=== PATIENT | female | born 1980 | race Caucasian/White ===

== ENCOUNTER 2017-12-20 16:43 | Emergency (ER) | payer SELFPAY ==
[~2017-12-20] VITALS: Wt 52.2 kg
[2017-12-20 16:45] VITALS: BP 129/100
[2017-12-20] MEDS ORDERED: CEPHALEXIN500 M1 PO (18:33)
== END 2017-12-20 18:59 | disposition home or self-care (01) ==
LOC: ED 16:43
DX: S51.812A Laceration without foreign body of left forearm, initial encounter (principal); Z23 Encounter for immunization; W20.8XXA Other cause of strike by thrown, projected or falling object, initial encounter; Y93.89 Activity, other specified; Y92.099 Unspecified place in other non-institutional residence as the place of occurrence of the external cause; Y99.9 Unspecified external cause status

== ENCOUNTER 2019-01-28 10:11 | Inpatient (IN) | payer OTHER ==
[~2019-01-28] VITALS: Ht 167.6 cm; Wt 53.1 kg
[~2019-01-28 10:11] MED LIST: CEPHALEXIN500 M1 PO
[2019-01-28 10:15] VITALS: BP 164/105
[2019-01-28 10:56] LABS: BASO % 0.3 % (0.0-1.0); EOS % 0.4 % (1.0-4.0); HEMOGLOBIN 11.5 g/dl (12.0-16.0); LYMPH # 0.9 10*3/uL (1.3-4.4); LYMPH % 10.9 % (27.0-41.0); MEAN CORPUSCULAR HGB 25.8 pg (27.0-31.0); MEAN CORPUSCULAR HGB CONC 31.1 g/dl (33.0-37.0); MEAN PLATELET VOLUME 9.1 fl (9.6-12.3); MONO # 1.3 10*3/uL (0.1-1.0); NEUT # 5.6 10*3/uL (2.3-7.9); NEUT % 70.8 % (47.0-73.0); PLATELET COUNT AUTOMATED 203 10*3/uL (130-400); RED BLOOD COUNT 4.46 10*6/uL (4.10-5.10); RED CELL DISTRI WIDTH 18.4 % (0-14.5); WHITE BLOOD COUNT 7.9 10*3/uL (4.8-10.8)
[2019-01-28 10:58] LABS: BILIRUBIN NEGATIVE (NEGATIVE); BLOOD 3+ (NEGATIVE); CLARITY CLOUDY (CLEAR); GLUCOSE NEGATIVE (NEGATIVE); KETONE TRACE (NEGATIVE); LEUKO ESTERASE 2+ (NEGATIVE); NITRITE POSITIVE (NEGATIVE)
[2019-01-28 10:59] LABS: COLOR RED (YELLOW)
[2019-01-28 11:11] LABS: ALBUMIN 2.4 gm/dl (3.1-4.5); ALKALINE PHOSPHATASE 70 U/L (45-117); BUN 18 mg/dl (7-24); CHLORIDE 107 mmol/L (98-107); CREATININE 0.84 mg/dL (0.55-1.02); LIPASE 68 U/L (73-393); POTASSIUM 3.8 mmol/L (3.5-5.1); SGOT/AST 15 IU/L (3-35); SGPT/ALT 12 U/L (12-78); SODIUM 138 mmol/L (136-145); TOTAL PROTEIN 6.8 gm/dL (6.4-8.2)
[2019-01-28 11:12] LABS: BACTERIA 4+; RBC TNTC rbc/hpf (0-2); WBC TNTC wbc/hpf (0-5)
[2019-01-28 11:16] LABS: BETA-HCG, QUANT < 1.0 mIU/mL (1-3)
[2019-01-28 13:50] VITALS: BP 144/95
[2019-01-28 14:00] VITALS: BP 150/96
--- NOTE | 2019-01-28 14:45 | NUR ---
Time: 1444 A 38 year old FEMALE admitted to 5E under services of HERMANN FORDE DO, Pt. arrived via stretcher from ER. Chief complaint: FLANK PAIN . OTTO ESTRADA
[2019-01-28] MEDS ORDERED: HYDR25T PO (14:56)
--- NOTE | 2019-01-28 15:26 | NUR ---
CONSULT INFO CALLED TO INFECTIOUS DISEASE OFFICE
--- NOTE | 2019-01-28 15:49 | NUR ---
CONSULT INFO CALLED TO DR FUNEZ OFFICE
[2019-01-28 16:00] VITALS: BP 148/90
--- NOTE | 2019-01-28 16:01 | NUR ---
SPKE WITH DR FUNEZ REGARDING CONSULT
--- NOTE | 2019-01-28 18:52 | NUR ---
PT MEDICATED WITH MORPHINE FOR C/O BACK PAIN. PT RATES PAIN 8/10 WILL MONITOR
[2019-01-28 20:00] VITALS: BP 139/85
--- NOTE | 2019-01-28 23:00 | NUR ---
MORPHINE GIVEN PER PATIENT REQUEST FOR BACK PAIN RATED 10/10. WILL ASSESS EFFECTIVENESS.
--- NOTE | 2019-01-28 23:15 | NUR ---
24 HOUR CHART CHECK COMPLETE.
[2019-01-29] VITALS: BP 150/91
--- NOTE | 2019-01-29 | NUR ---
MORPHINE EFFECTIVE PER PATIENT. CALL LIGHT WITHIN REACH.
--- NOTE | 2019-01-29 03:47 | NUR ---
PRN MORPHINE ADMINISTERED PRESCRIBED FOR PT C/O 10 FLANK PAIN. WILL CONTINUE TO MONITOR AND REASSESS. STATES "THE MORPHINE TAKES THE EDGE OFF BUT DOESN'T TAKE AWAY THE PAIN COMPLETELY".
--- NOTE | 2019-01-29 05:00 | NUR ---
PT STATES KP MORPHINE REDUCED HER PAIN TO A 6/10 ON THE PAIN SCALE. WILL CONTINUE TO MONITOR.
[2019-01-29 06:10] LABS: HEMATOCRIT 32.5 % (37.0-47.0); HEMOGLOBIN 10.4 g/dl (12.0-16.0); MEAN CELL VOLUME 80.6 fl (81.0-99.0); MEAN CORPUSCULAR HGB 25.8 pg (27.0-31.0); MEAN PLATELET VOLUME 9.7 fl (9.6-12.3); PLATELET COUNT AUTOMATED 204 10*3/uL (130-400); RED BLOOD COUNT 4.03 10*6/uL (4.10-5.10); RED CELL DISTRI WIDTH 18.3 % (0-14.5); WHITE BLOOD COUNT 9.4 10*3/uL (4.8-10.8)
[2019-01-29 06:36] LABS: ALBUMIN 2.1 gm/dl (3.1-4.5); BUN 12 mg/dl (7-24); CHLORIDE 105 mmol/L (98-107); CHOLESTEROL 87 mg/dL (<200); POTASSIUM 3.7 mmol/L (3.5-5.1); SGOT/AST 12 IU/L (3-35); SGPT/ALT 11 U/L (12-78); SODIUM 135 mmol/L (136-145); TOTAL PROTEIN 5.9 gm/dL (6.4-8.2); TRIGLYCERIDES 85 mg/dl (<150); VLDL CHOLESTEROL 17 mg/dL (6-40)
[2019-01-29 06:43] LABS: ALKALINE PHOSPHATASE 63 U/L (45-117); FREE T4 1.07 ng/dl (0.76-1.46); HDL CHOLESTEROL 17 mg/dl (40-60); LDL CHOLESTEROL 53 mg/dL (9-159)
[2019-01-29 07:22] LABS: BASOPHILS 1 % (0-1); PLATELET SUFFICIENCY NORMAL (NORMAL); TOTAL CELLS COUNTED 100 #CELLS
--- NOTE | 2019-01-29 07:37 | NUR ---
PT RESTING IN BED. NO DISTRESS NOTED. SEE SHIFT ASSESSMENT. WILL MONITOR
[2019-01-29 08:00] VITALS: BP 153/84
--- NOTE | 2019-01-29 08:53 | NUR ---
PT REQUESTED AND GIVEN MORPHINE FOR C/O BACK PAIN. PT RATES PAIN 8/10 WILL MONITOR
[2019-01-29 08:54] LABS: VITAMIN D, 25-HYDROXY 17.1 ng/mL (30-100)
--- NOTE | 2019-01-29 10:30 | NUR ---
morphine helped will monitor
[2019-01-29 12:00] VITALS: BP 151/94
--- NOTE | 2019-01-29 14:55 | NUR ---
NORCO GIVEN PER PT REQUEST FOR BACK PAIN RATED 7/10. PATIENT DESCRIBED PAIN A CONSTANT ACHE. WILL CONTINUE TO MONITOR AND REASSESS.
[2019-01-29 16:00] VITALS: BP 145/93
--- NOTE | 2019-01-29 16:02 | NUR ---
spoke with dr atkinson regarding pt bp no new orders recieved
--- NOTE | 2019-01-29 16:25 | NUR ---
pt requested and given morphine for c/o back pain. pt rates pain 5/10 will monitor
[2019-01-29 20:00] VITALS: BP 150/93
--- NOTE | 2019-01-29 20:15 | NUR ---
MORPHINE ADMINISTERED FOR 8/10 FLANK PAIN. PT DENIES DYSURIA. WILL CONTINUE TO MONITOR AND REASSESS. NO OTHER COMPLAINTS AT THIS TIME.
--- NOTE | 2019-01-29 20:16 | NUR ---
NURSING BONDERIZER OPERATOR AWARE OF BED AVAILABILITY AT [facility] FOR PT TRANSFER.
--- NOTE | 2019-01-29 20:20 | NUR ---
SPOKE WITH DR HARE REGARDING NEED FOR D/C ORDERS FOR PTS TRANSFER TO [facility].
[2019-01-29] MEDS ORDERED: ZOSYN 3.373.375 GM/5 IV ×2 (20:21→20:22)
--- NOTE | 2019-01-29 20:51 | NUR ---
PRN NORCO ADMINISTERED FOR BREAKTHROUGH PAIN RATED A 7/10. PT STATES THE MORPHINE WAS EFFECTIVE FOR A SHORT TIME. WILL CONTINUE TO MONITOR.
--- NOTE | 2019-01-29 21:02 | NUR ---
TRANSFER PAPER WORK COMPLETED BY PT. UNDERSTANDS REASON FOR TRANSFER.
--- NOTE | 2019-01-29 21:17 | NUR ---
Discharge instructions reviewed with patient. Patient receptive and verbalizes understanding. Pt aware of reasons for transfer to [facility]. Written instructions given to patient. Belongings sheet signed, all personal items with pt in bag. DAQUAN JAMES
--- NOTE | 2019-01-29 21:25 | NUR ---
TELEPHONE NURSE TO NURSE REPORT GIVEN TO SHAWNEE RAO AT [facility].
--- NOTE | 2019-01-29 21:41 | NUR ---
PT ASLEEP AT THIS TIME. RESPIRATIONS ERND. NO SIGNS OF DISCOMFORT OR DISTRESS.
--- NOTE | 2019-01-29 22:25 | NUR ---
PT OFF FLOOR VIA [facility]. BELONGINGS WITH PT. RECEIVING NURSE NOTIFED OF PTS DEPARTURE PER REQUEST.
== END 2019-01-29 22:28 | disposition short-term general hospital (02) | DRG 463 ==
LOC: ED 10:11 → EDHOLD 13:45 → 5E 13:45
PROVIDERS: Emergency Medicine; Registered Nurse; ADMIT Internal Medicine
DX: N10 Acute pyelonephritis (principal); E43 Unspecified severe protein-calorie malnutrition; I10 Essential (primary) hypertension; B19.20 Unspecified viral hepatitis C without hepatic coma; N15.1 Renal and perinephric abscess; B96.89 Other specified bacterial agents as the cause of diseases classified elsewhere; R80.9 Proteinuria, unspecified; Z87.891 Personal history of nicotine dependence; Z87.440 Personal history of urinary (tract) infections; Z79.899 Other long term (current) drug therapy; Z71.6 Tobacco abuse counseling; Z68.1 Body mass index [BMI] 19.9 or less, adult

== ENCOUNTER 2019-12-22 10:11 | Emergency (ER) | payer SELFPAY ==
[~2019-12-22] VITALS: Wt 49.9 kg
[~2019-12-22 10:11] MED LIST changes: +HYDR25T PO; +ZOSYN 3.373.375 GM/5 IV
[2019-12-22 10:15] VITALS: BP 150/90
[2019-12-22] MEDS ORDERED: IBU800 MG PO (10:38)
[2019-12-22] MEDS ORDERED: CLEOCIN HCL150 MG PO (10:38)
== END 2019-12-22 11:14 | disposition home or self-care (01) ==
LOC: ED 10:11
DX: K04.7 Periapical abscess without sinus (principal); K08.89 Other specified disorders of teeth and supporting structures; I10 Essential (primary) hypertension; Z79.899 Other long term (current) drug therapy

== ENCOUNTER 2020-12-11 10:23 | Emergency (ER) | payer OTHER ==
[~2020-12-11 10:23] MED LIST changes: +CLEOCIN HCL150 MG PO; +IBU800 MG PO
[2020-12-11 10:28] VITALS: BP 170/100
[2020-12-11 11:00] LABS: ALBUMIN 3.1 gm/dl (3.1-4.5); ALKALINE PHOSPHATASE 87 U/L (45-117); BUN 14 mg/dl (7-24); CHLORIDE 103 mmol/L (98-107); CREATININE 0.94 mg/dL (0.55-1.02); POTASSIUM 3.1 mmol/L (3.5-5.1); SGOT/AST 38 IU/L (3-35); SGPT/ALT 30 U/L (12-78); SODIUM 136 mmol/L (136-145)
== END 2020-12-11 11:46 | disposition left against medical advice (07) ==
LOC: ED 10:23
PROVIDERS: Student in an Organized Health Care Education/Training Program
DX: F11.23 Opioid dependence with withdrawal (principal); R25.1 Tremor, unspecified; R11.2 Nausea with vomiting, unspecified; F17.200 Nicotine dependence, unspecified, uncomplicated; Z79.2 Long term (current) use of antibiotics; Z79.899 Other long term (current) drug therapy; Z53.29 Procedure and treatment not carried out because of patient's decision for other reasons

== ENCOUNTER 2021-04-06 05:26 | Emergency (ER) | payer OTHER ==
[2021-04-06 07:09] VITALS: BP 136/91
== END 2021-04-06 09:21 | disposition left against medical advice (07) ==
LOC: ED 05:26
DX: M54.50 Low back pain, unspecified (principal); Z53.21 Procedure and treatment not carried out due to patient leaving prior to being seen by health care provider

== ENCOUNTER 2022-03-25 14:24 | Emergency (ER) | payer OTHER ==
[~2022-03-25] VITALS: Ht 167.6 cm; Wt 54.4 kg
[2022-03-25 14:46] VITALS: BP 169/95
[2022-03-25] MEDS ORDERED: AMOXICILLIN500 M2 PO (14:55)
== END 2022-03-25 14:58 | disposition home or self-care (01) ==
LOC: ED 14:24
DX: K02.9 Dental caries, unspecified (principal); Z98.890 Other specified postprocedural states; Z87.891 Personal history of nicotine dependence

== ENCOUNTER 2022-04-18 13:11 | Emergency (ER) | payer OTHER ==
[~2022-04-18] VITALS: Wt 54.4 kg
[~2022-04-18 13:11] MED LIST changes: +AMOXICILLIN500 M2 PO
[2022-04-18 13:16] VITALS: BP 166/90
== END 2022-04-18 13:52 | disposition left against medical advice (07) ==
LOC: ED 13:11
DX: Z53.21 Procedure and treatment not carried out due to patient leaving prior to being seen by health care provider (principal)

== ENCOUNTER → 2022-10-23 | Outpatient (CLI) | payer OTHER | END | disposition home or self-care (01) | LOC: RAD 12:57 | PROVIDERS: ATTEND Nurse Practitioner Family | DX: M25.561 Pain in right knee (principal) ==

== ENCOUNTER → 2023-05-07 | Outpatient (CLI) | payer OTHER | END | disposition home or self-care (01) | LOC: US 14:30 | PROVIDERS: ATTEND Nurse Practitioner Family | DX: I10 Essential (primary) hypertension (principal); R60.0 Localized edema ==

== ENCOUNTER 2023-11-27 13:09 | Emergency (ER) | payer OTHER ==
[~2023-11-27] VITALS: Ht 167.6 cm; Wt 59.0 kg
[2023-11-27 13:14] VITALS: BP 154/91
[2023-11-27] MEDS ORDERED: LOSARTAN-HCTZ1 EAC1 PO (13:21)
[2023-11-27] MEDS ORDERED: BUPRENORPHINE-1 EAC2 SL (13:22)
[2023-11-27 14:24] LABS: BASO # 0.1 10*3/uL (0.0-0.1); BASO % 1.1 % (0.0-1.0); EOS % 0.7 % (1.0-4.0); HEMATOCRIT 39.4 % (37.0-47.0); LYMPH # 1.1 10*3/uL (1.3-4.4); LYMPH % 18.9 % (27.0-41.0); MEAN CELL VOLUME 84.2 fl (81.0-99.0); MEAN CORPUSCULAR HGB 26.1 pg (27.0-31.0); MEAN PLATELET VOLUME 9.1 fl (9.6-12.3); MONO # 0.6 10*3/uL (0.1-1.0); MONO % 10.1 % (3.0-9.0); NEUT # 3.9 10*3/uL (2.3-7.9); PLATELET COUNT AUTOMATED 226 10*3/uL (130-400); RED BLOOD COUNT 4.68 10*6/uL (4.10-5.10); WHITE BLOOD COUNT 5.7 10*3/uL (4.8-10.8)
[2023-11-27 14:37] LABS: ACT PARTIAL THROMBO TIME 26.8 SECONDS (20.0-32.1)
[2023-11-27 14:44] LABS: BUN 9 mg/dl (9-23); CHLORIDE 102 mmol/L (98-107); POTASSIUM 3.2 mmol/L (3.4-5.1)
[2023-11-27] MEDS ORDERED: POTASSIUM CHLORIDE 20 MEQ TAB PO ONE (15:10)
[2023-11-27 15:25] LABS: BILIRUBIN Negative (Negative); BLOOD Trace-Intact (Negative); CLARITY Clear (Clear); COLOR Yellow (Yellow); GLUCOSE Negative (Negative); KETONE Trace (Negative); LEUKO ESTERASE Negative (Negative); NITRITE Negative (Negative); PH 6.5 (4.5-8.0)
[2023-11-27 15:33] LABS: URINE AMPHETAMINES Negative (1000ng/ml); URINE BARBITURATES Negative (200ng/ml); URINE BENZODIAZEPINES Negative (200ng/ml); URINE CANNABINOIDS (THC) Negative (50ng/ml); URINE COCAINE Positive (300ng/ml); URINE METHADONE Negative (300ng/ml); URINE OPIATES Negative (300ng/ml); URINE PHENCYCLIDINE Negative (25ng/ml)
[2023-11-27 15:38] LABS: BACTERIA 1+
[2023-11-27] MEDS ORDERED: GOOD NEIGHBOR M25 M1 PO (15:50)
== END 2023-11-27 16:03 | disposition home or self-care (01) ==
LOC: ED 13:09
PROVIDERS: Nurse Practitioner
DX: R07.89 Other chest pain (principal); R42 Dizziness and giddiness; R07.81 Pleurodynia; M25.521 Pain in right elbow; I10 Essential (primary) hypertension; H53.8 Other visual disturbances; D64.9 Anemia, unspecified; F11.10 Opioid abuse, uncomplicated; F14.10 Cocaine abuse, uncomplicated; F17.290 Nicotine dependence, other tobacco product, uncomplicated; Z98.890 Other specified postprocedural states; Z79.899 Other long term (current) drug therapy

== ENCOUNTER 2024-02-05 11:27 | Emergency (ER) | payer OTHER ==
[~2024-02-05] VITALS: Ht 167.6 cm; Wt 62.6 kg
[~2024-02-05 11:27] MED LIST changes: +BUPRENORPHINE-1 EAC2 SL; +GOOD NEIGHBOR M25 M1 PO; +LOSARTAN-HCTZ1 EAC1 PO
[2024-02-05 11:46] VITALS: BP 171/111
[2024-02-05 12:06] LABS: BASO # 0.1 10*3/uL (0.0-0.1); BASO % 1.1 % (0.0-1.0); EOS # 0.1 10*3/uL (0.0-0.4); EOS % 2.3 % (1.0-4.0); HEMATOCRIT 38.2 % (37.0-47.0); MEAN CELL VOLUME 82.9 fl (81.0-99.0); MEAN CORPUSCULAR HGB 25.4 pg (27.0-31.0); MEAN CORPUSCULAR HGB CONC 30.6 g/dl (33.0-37.0); MONO # 0.8 10*3/uL (0.1-1.0); MONO % 15.9 % (3.0-9.0); NEUT # 3.1 10*3/uL (2.3-7.9); NEUT % 58.2 % (47.0-73.0); PLATELET COUNT AUTOMATED 232 10*3/uL (130-400); RED BLOOD COUNT 4.61 10*6/uL (4.10-5.10); RED CELL DISTRI WIDTH 14.4 % (0-14.5); WHITE BLOOD COUNT 5.3 10*3/uL (4.8-10.8)
[2024-02-05 12:29] LABS: BUN 21 mg/dl (9-23); CHLORIDE 106 mmol/L (98-107); POTASSIUM 3.2 mmol/L (3.4-5.1)
[2024-02-05] MEDS ORDERED: POTASSIUM CHLORIDE 20 MEQ TAB PO ONE (12:45)
[2024-02-05] MEDS ORDERED: LORazepam 1 MG TAB PO ONE (13:00)
== END 2024-02-05 13:33 | disposition home or self-care (01) ==
LOC: ED 11:27
PROVIDERS: Nurse Practitioner Family
DX: R07.89 Other chest pain (principal); F41.1 Generalized anxiety disorder; E87.6 Hypokalemia; I10 Essential (primary) hypertension; E43 Unspecified severe protein-calorie malnutrition; F17.200 Nicotine dependence, unspecified, uncomplicated; Z79.899 Other long term (current) drug therapy

== ENCOUNTER 2024-02-18 11:49 | Emergency (ER) | payer OTHER ==
[~2024-02-18] VITALS: Ht 167.6 cm; Wt 59.0 kg
[2024-02-18] MEDS ORDERED: VISTARIL25 M2 PO (12:23)
[2024-02-18] MEDS ORDERED: 'CLONIDINE0.1 MG PO (12:24)
[2024-02-18] MEDS ORDERED: BUPROPION HYDR150 M3 PO (12:24)
[2024-02-18] MEDS ORDERED: BUPRENORPHINE SQ (12:25)
[2024-02-18 12:30] LABS: BASO # 0.1 10*3/uL (0.0-0.1); EOS # 0.1 10*3/uL (0.0-0.4); EOS % 2.8 % (1.0-4.0); HEMATOCRIT 38.8 % (37.0-47.0); MEAN CELL VOLUME 84.2 fl (81.0-99.0); MEAN CORPUSCULAR HGB 25.6 pg (27.0-31.0); MEAN CORPUSCULAR HGB CONC 30.4 g/dl (33.0-37.0); MEAN PLATELET VOLUME 9.7 fl (9.6-12.3); MONO # 0.7 10*3/uL (0.1-1.0); NEUT # 2.9 10*3/uL (2.3-7.9); NEUT % 57.9 % (47.0-73.0); PLATELET COUNT AUTOMATED 218 10*3/uL (130-400); RED BLOOD COUNT 4.61 10*6/uL (4.10-5.10); RED CELL DISTRI WIDTH 14.8 % (0-14.5); WHITE BLOOD COUNT 4.9 10*3/uL (4.8-10.8)
[2024-02-18 12:49] VITALS: BP 123/71
[2024-02-18 12:53] LABS: BUN 21 mg/dl (9-23); CHLORIDE 104 mmol/L (98-107); POTASSIUM 2.7 mmol/L (3.4-5.1)
[2024-02-18 13:21] LABS: URINE AMPHETAMINES Negative (1000ng/ml); URINE BARBITURATES Negative (200ng/ml); URINE BENZODIAZEPINES Negative (200ng/ml); URINE CANNABINOIDS (THC) Negative (50ng/ml); URINE COCAINE Positive (300ng/ml); URINE METHADONE Negative (300ng/ml); URINE OPIATES Negative (300ng/ml); URINE PHENCYCLIDINE Negative (25ng/ml)
[2024-02-18] MEDS ORDERED: POTASSIUM CHLORIDE 20 MEQ TAB PO ONE (13:35)
[2024-02-18] MEDS ORDERED: LORazepam 1 MG TAB PO ONE (13:35)
[2024-02-18] MEDS ORDERED: K-TAB20 MEQ PO (16:58)
== END 2024-02-18 14:18 | disposition home or self-care (01) ==
LOC: ED 11:49
PROVIDERS: Nurse Practitioner Family
DX: R07.89 Other chest pain (principal); F14.90 Cocaine use, unspecified, uncomplicated; I10 Essential (primary) hypertension; F41.9 Anxiety disorder, unspecified; F17.200 Nicotine dependence, unspecified, uncomplicated; Z79.899 Other long term (current) drug therapy